=== PATIENT | female | born 1990 | race Caucasian/White ===

== ENCOUNTER 2019-12-29 02:45 | Inpatient (IN) | payer BC ==
[2019-12-29] MEDS: Ibuprofen 800 MG Tab PO PRN ×3 (04:00→20:49)
[2019-12-29] MEDS ORDERED: Acetaminophen 325 MG Tab PO PRN (04:02)
[2019-12-29] MEDS ORDERED: Tranexamic Acid 1,000 MG in Sodium Chloride 0.9% 100 ML IV PRN (04:02)
[2019-12-29] MEDS ORDERED: Benzocaine/Menthol 20%-0.5% Spray 56 GM Canister TOP PRN (04:02)
[2019-12-29] MEDS ORDERED: Misoprostol 400 MCG (4 X 100 MCG TAB) RECTAL PRN (04:02)
[2019-12-29] MEDS ORDERED: Methylergonovine 0.2 MG/1 ML Amp IM PRN (04:02)
[2019-12-29] MEDS ORDERED: Ondansetron 4 MG/2 ML SDV IVPUSH PRN (04:02)
[2019-12-29] MEDS ORDERED: Zolpidem 5 MG Tab PO PRN (04:02)
[2019-12-29] MEDS ORDERED: Sodium Chloride 0.9% 10 ML Syringe FLUSH PRN (04:02)
[2019-12-29] MEDS ORDERED: Carboprost Tromethamine 250 MCG/1 ML Amp IM PRN (04:02)
[2019-12-29] MEDS ORDERED: Simethicone 80 MG Tab.Chew PO PRN (04:02)
[2019-12-29] MEDS ORDERED: Lactated Ringers 1,000 ML IV SCH (04:15)
[2019-12-29] MEDS ORDERED: Oxytocin/Normal Saline 30 UNIT/500 ML BAG IV SCH (04:15)
--- NOTE | 2019-12-29 04:19 | PCM.LDHP ---
L&D History of Present Illness - General Date of Service: 12/29/19 (admit H&P) Admit Problem/Dx: Patient Status Order with Admit Dx/Problem 12/29/19 04:03 Patient Status [ADT] Routine Admission Diagnosis/Problem Admission Diagnosis/Problem Labor established Source of Information: Patient, Family, Provider, RN, Significant Other History Limitations: Reports: No Limitations - History of Present Illness Introduction:: 29yo in at 40w3d with onset labor. membranes stripped this morning at her clinic appointment by me. no bleeding or LOF. baby active. cxns became stronger and closer together @ 130 this morning. no new concerns. 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 L&D Exam - Exam Exam: See Below - Vital Signs Vital Signs: Last Vital Signs Temp 97.9 F 12/29/19 02:52 Pulse 74 12/29/19 02:52 Resp 20 12/29/19 02:52 BP 141/91 H 12/29/19 02:52 Pulse Ox Weight: 130 lb - OB Specific Contraction Intensity: Strong Movement: Active Heart Tones: Present - Exam General: Alert, Oriented HEENT: PERRLA, Conjunctiva Clear, EACs Clear, EOMI, Hearing Intact, Mucosa Moist & [place], Nares Patent, Normal Nasal Septum, Posterior Pharynx Clear, TMs Clear Neck: Supple, Trachea Midline Lungs: Clear to Auscultation, Normal Respiratory Effort Cardiovascular: Regular Rate, Regular Rhythm GI/Abdominal Exam: Normal Bowel Sounds, Soft, Non-Tender, Pelvis Stable Rectal Exam: Normal Exam (external), Deferred Genitourinary: Normal external exam, Cervical dilitation, Enlarged uterus Back Exam: Normal Inspection, Full Range of Motion Extremities: Normal Inspection, Normal Range of Motion, Non-Tender, No Pedal Edema, Normal Capillary Refill Skin: Warm, Dry, Intact Neurological: Cranial Nerves Intact, Reflexes Equal Bilateral Psychiatric: Alert, Normal Affect, Normal Mood - Patient Data Lab Results Last 24 hrs: Laboratory Results - last 24 hr 12/29/19 12/29/19 Range/Units 02:50 02:59 WBC 6.9 (5.0-10.0) 10^3/uL RBC 4.05 L (4.2-5.4) 10^6/uL Hgb 11.4 L (12.0-16.0) g/dL Hct 33.6 L (37.0-47.0) % MCV 83.0 D (80-100) fL MCH 28.1 (27.0-34.0) pg MCHC 33.9 (33.0-35.0) g/dL Plt Count 129 L (150-450) 10^3/uL SARS CoV-2 RNA Rapid CHUCK Negative (NEGATIVE) Result Diagrams: 12/29/19 02:59 - Problem List (1) Mother currently breast-feeding SNOMED Code(s): 623231905 ICD Code: Z39.1 - ENCOUNTER FOR CARE AND EXAMINATION OF LACTATING MOTHER Status: Acute Current Visit: Yes (2) Blood type AB+ SNOMED Code(s): 382584715 ICD Code: Z67.30 - TYPE AB BLOOD, RH POSITIVE Status: Acute Current Visit: No (3) Group B Streptococcus not isolated SNOMED Code(s): 726656842 ICD Code: QXL9590 - Status: Acute Current Visit: No (4) Hypothyroidism SNOMED Code(s): 68192676 ICD Code: E03.9 - HYPOTHYROIDISM, UNSPECIFIED Status: Acute Current Visit: No (5) Labor established SNOMED Code(s): 96424595 ICD Code: OZQ2088 - Status: Acute Current Visit: No (6) Normal vaginal delivery SNOMED Code(s): 18673897, 024015716 ICD Code: O80 - ENCOUNTER FOR FULL-TERM UNCOMPLICATED DELIVERY Status: Acute Current Visit: No (7) Rubella immune SNOMED Code(s): 900804390 ICD Code: Z78.9 - OTHER SPECIFIED HEALTH STATUS Status: Acute Current Visit: No (8) Gestational hypertension SNOMED Code(s): 675165958 ICD Code: O13.9 - GESTATIONAL HTN W/O SIGNIFICANT PROTEINURIA, UNSP TRIMESTER Status: Acute Current Visit: Yes (9) Gestational thrombocytopenia without hemorrhage SNOMED Code(s): 425320043 ICD Code: O99.119 - OTH DIS OF BLD/BLD-FORM ORG/IMMUN MECHNSM COMP PREG,UNSP TRI; D69.6 - THROMBOCYTOPENIA, UNSPECIFIED Status: Acute Current Visit: Yes Problem List Initiated/Reviewed/Updated: Yes Orders Last 24hrs: Active Orders 24 hr Category Date Time Status Patient Status [ADT] Routine ADT 12/29/19 04:03 Ordered Communication Order [RC] ASDIRECTED Care 12/29/19 04:03 Ordered Heart Tones [RC] PER UNIT ROUTINE Care 12/29/19 04:03 Ordered Notify Provider Vital Signs OB [RC] ASDIRECTED Care 12/29/19 04:03 Ordered Notify Provider [RC] PRN Care 12/29/19 04:03 Ordered Up ad Patito [RC] ASDIRECTED Care 12/29/19 04:03 Ordered Up ad Patito [RC] ASDIRECTED Care 12/29/19 04:04 Ordered Vital Signs [RC] PER UNIT ROUTINE Care 12/29/19 04:03 Ordered Vital Signs [RC] PFP Care 12/29/19 04:08 Ordered Consult to General Scrap Worker [CONS] Routine Cons 12/29/19 04:02 Ordered Regular Diet [DIET] Diet 12/29/19 Breakfast Ordered ALANINE AMINOTRANSFERASE,ALT [CHEM] Routine Lab 12/29/19 04:02 Ordered ASPARTATE AMNIOTRANSFERASE,AST [CHEM] Routine Lab 12/29/19 04:02 Ordered BLOOD UREA NITROGEN,BUN [CHEM] Routine Lab 12/29/19 04:02 Ordered CORONAVIRUS COVID-19 PCR PHL Stat Lab 12/29/19 04:03 Ordered CREATININE W/GFR [CHEM] Routine Lab 12/29/19 04:11 Ordered LACTATE DEHYDROGENASE,LDH [CHEM] Routine Lab 12/29/19 04:02 Ordered PROTEIN/CREATININE RATIO,URINE [URCHEM] Routine Lab 12/29/19 04:11 Ordered UA RFX SAM AND CULT IF INDIC [URIN] Routine Lab 12/29/19 04:12 Ordered URIC ACID [CHEM] Routine Lab 12/29/19 04:02 Ordered Acetaminophen [TylenoL] Med 12/29/19 04:02 Ordered 650 mg PO Q4H PRN Benzocaine/Menthol [Dermoplast Pain Relief [place]] Med 12/29/19 04:02 Ordered See Dose Instructions TOP Q4H PRN Carboprost Tromethamine [Hemabate DS] Med 12/29/19 04:02 Ordered 250 mcg IM ASDIRECTED PRN Docusate Sodium [Colace] Med 12/29/19 04:02 Ordered 100 mg PO BID PRN Ibuprofen [Motrin] Med 12/29/19 04:02 Ordered 800 mg PO Q8H PRN Lactated Ringers @ 125 MLS/HR(1000ml) Med 12/29/19 04:15 Ordered Lactated Ringers [Ringers, Lactated] 1,000 ml IV ASDIRECTED Methylergonovine [Methergine] Med 12/29/19 04:02 Ordered 0.2 mg IM ASDIRECTED PRN Ondansetron [Zofran] Med 12/29/19 04:02 Ordered 4 mg IVPUSH Q4H PRN Oxytocin 30 Units in NS @ 2 MUNITS/MIN(500ml) Med 12/29/19 04:15 Ordered Oxytocin/Normal Saline [Pitocin in NS 30 UNIT/500 ML] 30 unit in 500 ml IV TITRATE Vit with Ca/FA/Iron [ Plus Iron] Med 12/29/19 09:00 Ordered 1 each PO DAILY Simethicone Med 12/29/19 04:02 Ordered 80 mg PO Q4H PRN Sodium Chloride 0.9% [Saline Flush] Med 12/29/19 04:02 Ordered 10 ml FLUSH ASDIRECTED PRN Tranexamic Acid [Cyklokapron] 1,000 mg Med 12/29/19 04:02 Ordered Sodium Chloride 0.9% [Normal Saline] 100 ml IV ONETIME Zolpidem [Ambien] Med 12/29/19 04:02 Ordered 5 mg PO BEDTIME PRN miSOPROStoL [Cytotec] Med 12/29/19 04:02 Ordered 800 mcg RECTAL ASDIRECTED PRN Assess Lochia [WOMSER] Per Unit Routine Oth 12/29/19 04:04 Ordered Assess Uterine Involution [WOMSER] Per Unit Routine Ot 12/29/19 04:04 Ordered Breast Pump [WOMSER] Per Unit Routine Ot 12/29/19 04:04 Ordered Ice Therapy [OM.PC] Per Unit Routine Oth 12/29/19 04:04 Ordered Perineal Care [OM.PC] Per Unit Routine Oth 12/29/19 04:04 Ordered Saline Lock Insert [OM.PC] Routine Ot 12/29/19 04:03 Ordered Sitz Bath [OM.PC] Per Unit Routine Ot 12/29/19 04:04 Ordered Resuscitation Status Routine Resus Stat 12/29/19 04:02 Ordered Medication Orders Acetaminophen (Tylenol) 650 mg PO Q4H PRN PRN Reason: Pain (Mild 1-3) and fever Benzocaine/Menthol (Dermoplast Pain Relief [place]) 0 gm TOP Q4H PRN PRN Reason: Perineal comfort measures Carboprost Tromethamine (Hemabate Ds) 250 mcg IM ASDIRECTED PRN PRN Reason: HEMORRHAGE Docusate Sodium (Colace) 100 mg PO BID PRN PRN Reason: Constipation Tranexamic Acid 1,000 mg/ (Sodium Chloride) 110 mls @ 660 mls/hr IV ONETIME PRN PRN Reason: Bleeding Oxytocin/Sodium Chloride (Pitocin In Ns 30 Unit/500 Ml) 30 unit in 500 mls @ 2 mls/hr IV TITRATE ZACHARY; Protocol Lactated Ringer's (Ringers, Lactated) 1,000 mls @ 125 mls/hr IV ASDIRECTED ZACHARY Ibuprofen (Motrin) 800 mg PO Q8H PRN PRN Reason: Mild Pain or Fever Methylergonovine Maleate (Methergine) 0.2 mg IM ASDIRECTED PRN PRN Reason: Hemorrhage Misoprostol (Cytotec) 800 mcg RECTAL ASDIRECTED PRN PRN Reason: Hemorrhage Ondansetron HCl (Zofran) 4 mg IVPUSH Q4H PRN PRN Reason: Nausea/Vomiting Prenat Multivit/Residential Care Officer/Iron/Folic Ac ( Plus Iron) 1 each PO DAILY ZACHARY Simethicone (Simethicone) 80 mg PO Q4H PRN PRN Reason: Gas Sodium Chloride (Saline Flush) 10 ml FLUSH ASDIRECTED PRN PRN Reason: Keep Vein Open Zolpidem Tartrate (Ambien) 5 mg PO BEDTIME PRN PRN Reason: Insomnia Assessment/Plan Comment:: 29yo @ 40w3d in active labor with advanced cervical dilation AB+, RI, GBS negative hypothyroidism low plts, 129 gestational HTN Plan: admit check COVID status--negative r/o pre-eclampsia set up for anticipated rapid vaginal delivery routine admit and orders. all questions answered. hmb
--- NOTE | 2019-12-29 04:32 | PCM.DEL ---
L & D Note - General Info Date of Service: 12/29/19 (time of delivery 0322) Mother's Due Date: 12/26/19 (40w3d) - Delivery Note Labor: Spontaneous Delivery Outcome: Livebirth Delivery Method: Spontaneous Vaginal Delivery-Single Infant Delivery Mode: Spontaneous Presentation: Left Occiput Anterior (FELICIANO) Nuchal Cord: None Anesthesia Type: None Amniotic Fluid Description: Clear Episiotomy Type: None Laceration: None Placenta: Intact, Expressed Cord: 3 Vessels Estimated Blood Loss: 200 Resuscitation Needed: No Candor: Suctioned, Stimulated Provider: Abbie Echols Score 1 min: 8 Score 5 min: 9 Second Stage Interventions: Reports: Encouragement Given, Pushing Effectively Delivery Comments (Free Text/Narrative):: Joslyn complete with BBOWI, AROM carried out with return of clear fluid. pushed well. FELICIANO, pop of right/ant shoulder felt at delivery. posterior shoulder, then rest of baby delivered without difficulty unmedicated, uncomplicated over intact perineum. baby dried, stimulated, bulb suctioned with strong cry placed on mom's chest for skin to skin contact and nursing. APGARs 8 & 9 BW 7lb 7oz/3375g placenta intact, 3vc EBL <200cc fundus firm and pitocin infusing. both doing well and will follow routine and nursery orders b - General Info Date of Service: 12/29/19 (321) Admission Dx/Problem (Free Text): Patient Status Order with Admit Dx/Problem 12/29/19 04:03 Patient Status [ADT] Routine Admission Diagnosis/Problem Admission Diagnosis/Problem Labor established Functional Status: Reports: Pain Controlled - Review of Systems General: Reports: No Symptoms HEENT: Reports: No Symptoms Pulmonary: Reports: No Symptoms Cardiovascular: Reports: No Symptoms Gastrointestinal: Reports: No Symptoms Genitourinary: Reports: No Symptoms Musculoskeletal: Reports: No Symptoms Skin: Reports: No Symptoms Neurological: Reports: No Symptoms Psychiatric: Reports: No Symptoms - Patient Data Vitals - Most Recent: Last Vital Signs Temp 98.1 F 12/29/19 03:40 Pulse 61 12/29/19 04:18 Resp 18 12/29/19 04:18 BP 157/80 H 12/29/19 04:18 Pulse Ox Weight - Most Recent: 130 lb Lab Results Last 24 Hours: Laboratory Results - last 24 hr 12/29/19 12/29/19 Range/Units 02:50 02:59 WBC 6.9 (5.0-10.0) 10^3/uL RBC 4.05 L (4.2-5.4) 10^6/uL Hgb 11.4 L (12.0-16.0) g/dL Hct 33.6 L (37.0-47.0) % MCV 83.0 D (80-100) fL MCH 28.1 (27.0-34.0) pg MCHC 33.9 (33.0-35.0) g/dL Plt Count 129 L (150-450) 10^3/uL SARS CoV-2 RNA Rapid CHUCK Negative (NEGATIVE) Med Orders - Current: Current Medications Acetaminophen (Tylenol) 650 mg PO Q4H PRN PRN Reason: Pain (Mild 1-3) and fever Benzocaine/Menthol (Dermoplast Pain Relief [place]) 0 gm TOP Q4H PRN PRN Reason: Perineal comfort measures Carboprost Tromethamine (Hemabate Ds) 250 mcg IM ASDIRECTED PRN PRN Reason: HEMORRHAGE Docusate Sodium (Colace) 100 mg PO BID PRN PRN Reason: Constipation Tranexamic Acid 1,000 mg/ (Sodium Chloride) 110 mls @ 660 mls/hr IV ONETIME PRN PRN Reason: Bleeding Oxytocin/Sodium Chloride (Pitocin In Ns 30 Unit/500 Ml) 30 unit in 500 mls @ 2 mls/hr IV TITRATE ZACHARY; Protocol Lactated Ringer's (Ringers, Lactated) 1,000 mls @ 125 mls/hr IV ASDIRECTED ZACHARY Ibuprofen (Motrin) 800 mg PO Q8H PRN PRN Reason: Mild Pain or Fever Methylergonovine Maleate (Methergine) 0.2 mg IM ASDIRECTED PRN PRN Reason: Hemorrhage Misoprostol (Cytotec) 800 mcg RECTAL ASDIRECTED PRN PRN Reason: Hemorrhage Ondansetron HCl (Zofran) 4 mg IVPUSH Q4H PRN PRN Reason: Nausea/Vomiting Prenat Multivit/[place]/Iron/Folic Ac ( Plus Iron) 1 each PO DAILY ZACHARY Simethicone (Simethicone) 80 mg PO Q4H PRN PRN Reason: Gas Sodium Chloride (Saline Flush) 10 ml FLUSH ASDIRECTED PRN PRN Reason: Keep Vein Open Zolpidem Tartrate (Ambien) 5 mg PO BEDTIME PRN PRN Reason: Insomnia - Exam General: Alert, Oriented HEENT: Pupils Equal, Pupils Reactive, EOMI, Mucous Membr. Moist/[place] Neck: Supple Lungs: Clear to Auscultation, Normal Respiratory Effort Cardiovascular: Regular Rate, Regular Rhythm GI/Abdominal Exam: Normal Bowel Sounds, Soft, Non-Tender, No Organomegaly, No Distention, No Abnormal Bruit, No Mass, Pelvis Stable (Female) Exam: Normal External Exam, Normal Speculum Exam, Normal Bimanual Exam Back Exam: Normal Inspection, Full Range of Motion Extremities: Normal Inspection, Normal Range of Motion, Non-Tender, No Pedal Edema, Normal Capillary Refill Skin: Warm, Dry, Intact Wound/Incisions: Healing Well Neurological: No New Focal Deficit Psy/Mental Status: Alert, Normal Affect, Normal Mood - Problem List & Annotations (1) Mother currently breast-feeding SNOMED Code(s): 970804409 Code(s): Z39.1 - ENCOUNTER FOR CARE AND EXAMINATION OF LACTATING MOTHER Status: Acute Current Visit: Yes (2) Blood type AB+ SNOMED Code(s): 612617661 Code(s): Z67.30 - TYPE AB BLOOD, RH POSITIVE Status: Acute Current Visit: No (3) Group B Streptococcus not isolated SNOMED Code(s): 435223012 Code(s): YNG7143 - Status: Acute Current Visit: No (4) Hypothyroidism SNOMED Code(s): 55629283 Code(s): E03.9 - HYPOTHYROIDISM, UNSPECIFIED Status: Acute Current Visit: No (5) Labor established SNOMED Code(s): 46771523 Code(s): BVG0583 - Status: Acute Current Visit: No (6) Normal vaginal delivery SNOMED Code(s): 79758308, 572482656 Code(s): O80 - ENCOUNTER FOR FULL-TERM UNCOMPLICATED DELIVERY Status: Acute Current Visit: No (7) Rubella immune SNOMED Code(s): 005371227 Code(s): Z78.9 - OTHER SPECIFIED HEALTH STATUS Status: Acute Current Visit: No (8) Gestational hypertension SNOMED Code(s): 375265332 Code(s): O13.9 - GESTATIONAL HTN W/O SIGNIFICANT PROTEINURIA, UNSP TRIMESTER Status: Acute Current Visit: Yes (9) Gestational thrombocytopenia without hemorrhage SNOMED Code(s): 415738291 Code(s): O99.119 - OTH DIS OF BLD/BLD-FORM ORG/IMMUN MECHNSM COMP PREG,UNSP TRI; D69.6 - THROMBOCYTOPENIA, UNSPECIFIED Status: Acute Current Visit: Yes - Problem List Review Problem List Initiated/Reviewed/Updated: Yes - My Orders Last 24 Hours: My Active Orders 12/29/19 04:02 Consult to Farm Mechanic [CONS] Routine ALANINE AMINOTRANSFERASE,ALT [CHEM] Routine ASPARTATE AMNIOTRANSFERASE,AST [CHEM] Routine BLOOD UREA NITROGEN,BUN [CHEM] Routine LACTATE DEHYDROGENASE,LDH [CHEM] Routine URIC ACID [CHEM] Routine Acetaminophen [TylenoL] 650 mg PO Q4H PRN Benzocaine/Menthol [Dermoplast Pain Relief [place]] See Dose Instructions TOP Q4H PRN Carboprost Tromethamine [Hemabate DS] 250 mcg IM ASDIRECTED PRN Docusate Sodium [Colace] 100 mg PO BID PRN Ibuprofen [Motrin] 800 mg PO Q8H PRN Methylergonovine [Methergine] 0.2 mg IM ASDIRECTED PRN Ondansetron [Zofran] 4 mg IVPUSH Q4H PRN Simethicone 80 mg PO Q4H PRN Sodium Chloride 0.9% [Saline Flush] 10 ml FLUSH ASDIRECTED PRN Tranexamic Acid [Cyklokapron] 1,000 mg Sodium Chloride 0.9% [Normal Saline] 100 ml IV ONETIME Zolpidem [Ambien] 5 mg PO BEDTIME PRN miSOPROStoL [Cytotec] 800 mcg RECTAL ASDIRECTED PRN Resuscitation Status Routine 12/29/19 04:03 Patient Status [ADT] Routine Communication Order [RC] ASDIRECTED Heart Tones [RC] PER UNIT ROUTINE Notify Provider Vital Signs OB [RC] ASDIRECTED Notify Provider [RC] PRN Up ad Patito [RC] ASDIRECTED Vital Signs [RC] PER UNIT ROUTINE Saline Lock Insert [OM.PC] Routine 12/29/19 04:04 Up ad Patito [RC] ASDIRECTED Assess Lochia [WOMSER] Per Unit Routine Assess Uterine Involution [WOMSER] Per Unit Routine Breast Pump [WOMSER] Per Unit Routine Ice Therapy [OM.PC] Per Unit Routine Perineal Care [OM.PC] Per Unit Routine Sitz Bath [OM.PC] Per Unit Routine 12/29/19 04:08 Vital Signs [RC] PFP 12/29/19 04:11 CREATININE W/GFR [CHEM] Routine PROTEIN/CREATININE RATIO,URINE [URCHEM] Routine 12/29/19 04:12 UA RFX SAM AND CULT IF INDIC [URIN] Routine 12/29/19 04:15 Lactated Ringers @ 125 MLS/HR(1000ml) Lactated Ringers [Ringers, Lactated] 1,000 ml IV ASDIRECTED Oxytocin 30 Units in NS @ 2 MUNITS/MIN(500ml) Oxytocin/Normal Saline [Pitocin in NS 30 UNIT/500 ML] 30 unit in 500 ml IV TITRATE 12/29/19 Breakfast Regular Diet [DIET] 12/29/19 09:00 Vit with Ca/FA/Iron [ Plus Iron] 1 each PO DAILY - Plan Plan:: 29yo @ 40w3d in active labor with advanced cervical dilation AB+, RI, GBS negative hypothyroidism low plts, 129 gestational HTN Plan: admit check COVID status--negative r/o pre-eclampsia set up for anticipated rapid vaginal delivery routine admit and orders. all questions answered. hmb Delivery viable female 7lb 7oz/ 3375g APGARs 8 & 9 uncomplicated, unmedicated hmb
[2019-12-29] MEDS ORDERED: Labetalol 100 MG Tab PO ONE (04:45)
[2019-12-29] MEDS ORDERED: Labetalol 100 MG Tab PO SCH ×2 (04:45→09:00)
[2019-12-29] MEDS: Prenatal Multivitamin with Calcium/Folic Acid/Iron Tab PO SCH (08:34)
[2019-12-29] MEDS: Docusate Sodium 100 MG Cap PO PRN ×2 (08:34→20:49)
--- NOTE | 2019-12-29 14:54 | PCM.SN.2 ---
- Free Text/Narrative Note: 12-29-2019 doing well 12 hours post delivery. BP well controlled and will stop her labetalol and see what happens with her BP pIH panel appears reassuring except for PLT 129. prot/creat ratio unreliable due to PP specimen with packed field RBCs and sp >1.030 will continue to follow closely nursing. plan discharge tomorrow. burtb
[2019-12-30] MEDS: Prenatal Multivitamin with Calcium/Folic Acid/Iron Tab PO SCH (08:34)
[2019-12-30] MEDS: Docusate Sodium 100 MG Cap PO PRN (08:34)
--- NOTE | 2019-12-30 09:18 | PCM.DCSUM1 ---
Discharge Summary - Hospital Course Diagnosis: Stroke: No - Discharge Data Discharge Disposition: Home, Self-Care 01 Condition: Good - Referral to Home Health Primary Care Physician: Abbie Echols MD - Discharge Diagnosis/Problem(s) (1) Mother currently breast-feeding SNOMED Code(s): 662636097 ICD Code: Z39.1 - ENCOUNTER FOR CARE AND EXAMINATION OF LACTATING MOTHER Status: Acute Current Visit: Yes (2) Blood type AB+ SNOMED Code(s): 898694523 ICD Code: Z67.30 - TYPE AB BLOOD, RH POSITIVE Status: Acute Current Visit: No (3) Group B Streptococcus not isolated SNOMED Code(s): 807603160 ICD Code: PSR8655 - Status: Acute Current Visit: No (4) Hypothyroidism SNOMED Code(s): 13348291 ICD Code: E03.9 - HYPOTHYROIDISM, UNSPECIFIED Status: Acute Current Visit: No (5) Labor established SNOMED Code(s): 21243500 ICD Code: XXM2573 - Status: Acute Current Visit: No (6) Normal vaginal delivery SNOMED Code(s): 51632651, 979086476 ICD Code: O80 - ENCOUNTER FOR FULL-TERM UNCOMPLICATED DELIVERY Status: Acute Current Visit: No (7) Rubella immune SNOMED Code(s): 279317634 ICD Code: Z78.9 - OTHER SPECIFIED HEALTH STATUS Status: Acute Current Visit: No (8) Gestational hypertension SNOMED Code(s): 331325085 ICD Code: O13.9 - GESTATIONAL HTN W/O SIGNIFICANT PROTEINURIA, UNSP TRIMESTER Status: Acute Current Visit: Yes (9) Gestational thrombocytopenia without hemorrhage SNOMED Code(s): 905273683 ICD Code: O99.119 - OTH DIS OF BLD/BLD-FORM ORG/IMMUN MECHNSM COMP PREG,UNSP TRI; D69.6 - THROMBOCYTOPENIA, UNSPECIFIED Status: Acute Current Visit: Yes - Patient Summary/Data Consults: Consultations 12/29/19 04:02 Consult to Club Manager [CONS] Routine - Discharge Plan Home Medications: Home Meds Ferrous Sulfate 1 tab PO BIDMEALS 02/08/18 [History] Levothyroxine [Levothroid] 300 mcg PO DAILY 02/08/18 [History] Vit with Ca/FA/Iron [ Plus Iron] 1 tab PO DAILY 02/08/18 [History] Patient Handouts: Vaginal Delivery Referrals: Abbie Echols MD [Primary Care Provider] - (Schedule 6-8 week appointment ) - Patient Data Vitals - Most Recent: Last Vital Signs Temp 98.7 F 12/30/19 08:00 Pulse 73 12/30/19 08:00 Resp 16 12/30/19 08:00 BP 128/86 12/30/19 08:00 Pulse Ox 100 12/30/19 08:00 Weight - Most Recent: 130 lb Med Orders - Current: Current Medications Acetaminophen (Tylenol) 650 mg PO Q4H PRN PRN Reason: Pain (Mild 1-3) and fever Benzocaine/Menthol (Dermoplast Pain Relief [place]) 0 gm TOP Q4H PRN PRN Reason: Perineal comfort measures Carboprost Tromethamine (Hemabate Ds) 250 mcg IM ASDIRECTED PRN PRN Reason: HEMORRHAGE Docusate Sodium (Colace) 100 mg PO BID PRN PRN Reason: Constipation Last Admin: 12/30/19 08:34 Dose: 100 mg Documented by: Tranexamic Acid 1,000 mg/ (Sodium Chloride) 110 mls @ 660 mls/hr IV ONETIME PRN PRN Reason: Bleeding Oxytocin/Sodium Chloride (Pitocin In Ns 30 Unit/500 Ml) 30 unit in 500 mls @ 2 mls/hr IV TITRATE [facility]; Protocol Last Titration: 12/29/19 06:25 Dose: Infused Documented by: Lactated Ringer's (Ringers, Lactated) 1,000 mls @ 125 mls/hr IV ASDIRECTED ZACHARY Last Admin: 12/29/19 03:00 Dose: 125 mls/hr Documented by: Ibuprofen (Motrin) 800 mg PO Q8H PRN PRN Reason: Mild Pain or Fever Last Admin: 12/29/19 20:49 Dose: 800 mg Documented by: Methylergonovine Maleate (Methergine) 0.2 mg IM ASDIRECTED PRN PRN Reason: Hemorrhage Misoprostol (Cytotec) 800 mcg RECTAL ASDIRECTED PRN PRN Reason: Hemorrhage Ondansetron HCl (Zofran) 4 mg IVPUSH Q4H PRN PRN Reason: Nausea/Vomiting Prenat Multivit/County Judge/Iron/Folic Ac ( Plus Iron) 1 each PO DAILY [facility] Last Admin: 12/30/19 08:34 Dose: Not Given Documented by: Simethicone (Simethicone) 80 mg PO Q4H PRN PRN Reason: Gas Sodium Chloride (Saline Flush) 10 ml FLUSH ASDIRECTED PRN PRN Reason: Keep Vein Open Zolpidem Tartrate (Ambien) 5 mg PO BEDTIME PRN PRN Reason: Insomnia Discontinued Medications Labetalol HCl (Normodyne) 100 mg PO ONETIME ONE Stop: 12/29/19 04:46 Last Admin: 12/29/19 04:46 Dose: 100 mg Documented by: Labetalol HCl (Normodyne) 100 mg PO BID [facility] Last Admin: 12/29/19 15:18 Dose: Not Given Documented by:
== END 2019-12-30 09:55 | disposition home or self-care (01) | DRG 560 ==
LOC: DL.OBCHECK 02:45 → DL.OB 02:56 → OBSVTOIN 03:22 → DL.OB 03:22
PROVIDERS: ADMIT Family Medicine; ATTEND Family Medicine
PROC: 10907ZC Drainage of Amniotic Fluid, Therapeutic from Products of Conception, Via Natural or Artificial Opening (ICD-10-PCS; principal; 2019-12-29)
PROC: 10E0XZZ Delivery of Products of Conception, External Approach (ICD-10-PCS; 2019-12-29)
DX: O48.0 Post-term pregnancy (principal); Z3A.40 40 weeks gestation of pregnancy; Z37.0 Single live birth; O99.284 Endocrine, nutritional and metabolic diseases complicating childbirth; E05.90 Thyrotoxicosis, unspecified without thyrotoxic crisis or storm; Z79.890 Hormone replacement therapy; O99.12 Other diseases of the blood and blood-forming organs and certain disorders involving the immune mechanism complicating childbirth; D69.6 Thrombocytopenia, unspecified; Z67.30 Type AB blood, Rh positive; O13.4 Gestational [pregnancy-induced] hypertension without significant proteinuria, complicating childbirth; Z20.828 Contact with and (suspected) exposure to other viral communicable diseases
CPT/HCPCS: 36415; 59409; 81001; 82565; 82570; 83615; 84156; 84450; 84460; 84520; 84550; 85027; A9270-GY; J2590; J7120; U0002